=== PATIENT | female | born 1995 | race American Indian/Alaskan Native ===

== ENCOUNTER 2019-04-17 12:57 | Emergency (ER) | payer SELFPAY ==
[2019-04-17] MEDS ORDERED: TYLENOL PO STA (13:10)
[2019-04-17] MEDS ORDERED: NACL 0.9% 500 ML 500 ML IV ONE (13:10)
--- NOTE | 2019-04-17 13:12 | Event Note ---
ED Screening Note Date of service: 04/17/19 Time: 13:11 ED Screening Note: 23 y/o female c/o fever, kidney pain, blurry vision for few days. This initial assessment/diagnostic orders/clinical plan/treatment(s) is/are subject to change based on patients health status, clinical progression and re- assessment by fellow clinical providers in the ED. Further treatment and workup at subsequent clinical providers discretion. Patient/guardian urged not to elope from the ED as their condition may be serious if not clinically assessed and managed. Initial orders include:
[2019-04-17 13:45] LABS: Monocytes % (Auto) 6.6 % (0.0-7.3)
[2019-04-17] MEDS ORDERED: NACL 0.9% 1000 ML IV ONE (13:47)
[2019-04-17 13:48] LABS: INR 1.17 (0.87-1.13)
[2019-04-17] MEDS ORDERED: ZOFRAN IV ONE (13:53)
[2019-04-17] MEDS ORDERED: SUBLIMAZE IV ONE (13:53)
[2019-04-17 13:54] LABS: Alanine Aminotransferase 8 units/L (7-56); Albumin 3.8 g/dL (3.9-5); BUN/Creatinine Ratio 11; Basophils % (Auto) 0.2 % (0.0-1.8); Blood Urea Nitrogen 8 mg/dL (7-17); Hematocrit 34.7 % (30.3-42.9); Hemoglobin 11.2 gm/dl (10.1-14.3); Hemolysis Index 1; Lymphocytes % (Auto) 4.6 % (13.4-35.0); Mean Corpuscular HGB Conc 32 % (30-34); Mean Corpuscular Volume 81 fl (79-97); Platelet Count 259 K/mm3 (140-440); Red Blood Count 4.31 M/mm3 (3.65-5.03); Red Cell Distribution Width 18.8 % (13.2-15.2)
[2019-04-17 13:55] LABS: Monocytes # (Auto) 1.5 K/mm3 (0.0-0.8)
--- NOTE | 2019-04-17 14:02 | Emergency Department Report ---
HPI - General Chief Complaint: Urogenital-Female Time Seen by Provider: 04/17/19 13:47 - HPI HPI: Room 7 The patient is a 23-year-old female presenting with a chief complaint of right flank pain. The patient says she's had sharp pain in her right flank since yesterday. Patient admits to urinary frequency and dysuria at the end of her stream. Patient denies hematuria or vaginal discharge. Patient denies nausea or vomiting. Patient admits to subjective fever and chills. Patient currently gives her pain a score of 10/10 Location: [See above] Duration: [See above] Quality: [See above] Severity: [See above] Modifying factors: [see above] Context: [see above] Mode of transportation: [not driving] ED Past Medical Hx - Past Medical History Previous Medical History?: No - Surgical History Past Surgical History?: No - Family History Family history: no significant - Social History Smoking Status: Never Smoker Substance Use Type: None (denies illicit drug use) - Medications Home Medications: Home Medications Medication Instructions Recorded Confirmed Last Taken Type HYDROcodone/APAP 5-325 [[place] 1 - 2 each PO Q6HR PRN #14 tablet 04/17/19 Unknown Rx 5/325] Ibuprofen [Motrin 800 MG tab] 800 mg PO Q8HR PRN #20 tablet 04/17/19 Unknown Rx levoFLOXacin [Levaquin] 750 mg PO QDAY #10 tablet 04/17/19 Unknown Rx ED Review of Systems ROS: Stated complaint: BACK PAIN/BLURR VISION Other details as noted in HPI Constitutional: chills, fever Eyes: denies: eye pain ENT: denies: throat pain Respiratory: no symptoms reported Cardiovascular: denies: chest pain Endocrine: no symptoms reported Gastrointestinal: denies: abdominal pain, nausea, vomiting Genitourinary: dysuria, frequency. denies: hematuria, discharge Musculoskeletal: back pain Neurological: headache Physical Exam - Physical Exam Vital Signs: Vital Signs 04/17/19 13:08 Temperature 101.6 F H Pulse Rate 125 H Respiratory 18 Rate Blood Pressure 140/86 O2 Sat by Pulse 97 Oximetry Physical Exam: GENERAL: The patient is well-developed well-nourished female lying on stretcher not appearing to be in acute distress. [] HEENT: Normocephalic. Atraumatic. Extraocular motions are intact. Patient has moist mucous membranes. NECK: Supple. No meningitic signs are noted. Trachea midline CHEST/LUNGS: Clear to auscultation. There is no respiratory distress noted. HEART/CARDIOVASCULAR: Regular. There is tachycardia. There is no gallop rub or murmur. ABDOMEN: Abdomen is soft, nontender. Patient has normal bowel sounds. There is no abdominal distention. SKIN: There is no rash. There is no edema. There is no diaphoresis. NEURO: The patient is awake, alert, and oriented. The patient is cooperative. The patient has no focal neurologic deficits. The patient has normal speech MUSCULOSKELETAL: There is right CVA tenderness. There is no evidence of acute injury. ED Course Vital Signs 04/17/19 13:08 Temperature 101.6 F H Pulse Rate 125 H Respiratory 18 Rate Blood Pressure 140/86 O2 Sat by Pulse 97 Oximetry - Reevaluation(s) Reevaluation #1: 04/17/19 17:00 Patient states she feels improved and just wants something to eat. ED Medical Decision Making - Lab Data Result diagrams: 04/17/19 13:12 04/17/19 13:12 Laboratory Tests 04/17/19 04/17/19 04/17/19 13:12 13:12 13:12 WBC 22.1 H RBC 4.31 Hgb 11.2 Hct 34.7 MCV 81 MCH 26 L MCHC 32 RDW 18.8 H Plt Count 259 Lymph % (Auto) 4.6 L [place] % (Auto) 6.6 Eos % (Auto) 0.0 Baso % (Auto) 0.2 Lymph # 1.0 L [place] # 1.5 H Eos # 0.0 Baso # 0.0 Seg Neutrophils % 88.6 H Seg Neutrophils # 19.6 H PT 14.6 INR 1.17 H VBG pH Sodium 133 L Potassium 3.5 L Chloride 99.9 Carbon Dioxide 17 L Anion Gap 20 BUN 8 Creatinine 0.7 Estimated GFR > 60 BUN/Creatinine Ratio 11 Glucose 106 H Lactic Acid Calcium 9.0 Total Bilirubin 0.50 AST 10 ALT 8 Alkaline Phosphatase 58 Total Protein 7.3 Albumin 3.8 L Albumin/Globulin Ratio 1.1 Urine Color Urine Turbidity Urine pH Ur Specific [place] Urine Protein Urine Glucose (UA) Urine Ketones Urine Blood Urine Nitrite Urine Bilirubin Urine Urobilinogen Ur Leukocyte Esterase Urine WBC (Auto) Urine RBC (Auto) U Epithel Cells (Auto) Urine Bacteria (Auto) Urine Mucus Ur Yeast w Hyphae 04/17/19 04/17/19 04/17/19 13:12 13:12 15:37 WBC RBC Hgb Hct MCV MCH MCHC RDW Plt Count Lymph % (Auto) [place] % (Auto) Eos % (Auto) Baso % (Auto) Lymph # [place] # Eos # Baso # Seg Neutrophils % Seg Neutrophils # PT INR VBG pH 7.363 Sodium Potassium Chloride Carbon Dioxide Anion Gap BUN Creatinine Estimated GFR BUN/Creatinine Ratio Glucose Lactic Acid 0.90 1.20 Calcium Total Bilirubin AST ALT Alkaline Phosphatase Total Protein Albumin Albumin/Globulin Ratio Urine Color Urine Turbidity Urine pH Ur Specific [place] Urine Protein Urine Glucose (UA) Urine Ketones Urine Blood Urine Nitrite Urine Bilirubin Urine Urobilinogen Ur Leukocyte Esterase Urine WBC (Auto) Urine RBC (Auto) U Epithel Cells (Auto) Urine Bacteria (Auto) Urine Mucus Ur Yeast w Hyphae 04/17/19 15:43 WBC RBC Hgb Hct MCV MCH MCHC RDW Plt Count Lymph % (Auto) [place] % (Auto) Eos % (Auto) Baso % (Auto) Lymph # [place] # Eos # Baso # Seg Neutrophils % Seg Neutrophils # PT INR VBG pH Sodium Potassium Chloride Carbon Dioxide Anion Gap BUN Creatinine Estimated GFR BUN/Creatinine Ratio Glucose Lactic Acid Calcium Total Bilirubin AST ALT Alkaline Phosphatase Total Protein Albumin Albumin/Globulin Ratio Urine Color Yellow Urine Turbidity Slightly-cloudy Urine pH 6.0 Ur Specific [place] 1.012 Urine Protein 30 mg/dl Urine Glucose (UA) Neg Urine Ketones 80 Urine Blood Sm Urine Nitrite Neg Urine Bilirubin Neg Urine Urobilinogen < 2.0 Ur Leukocyte Esterase Lg Urine WBC (Auto) 64.0 H Urine RBC (Auto) 12.0 U Epithel Cells (Auto) 3.0 Urine Bacteria (Auto) 1+ Urine Mucus Few Ur Yeast w Hyphae Few - Radiology Data Radiology results: report reviewed (chest x-ray), image reviewed (chest x-ray) interpreted by me: Chest x-ray-no focal infiltrates, no pneumothorax [facility] [address] [place] [address] XRay Report Signed Patient: JOANA DIAZ MR#: [id number] : 1995 Acct:[id number] Age/Sex: 23 / F ADM Date: 04/17/19 Loc: ED Attending Dr: Ordering Physician: JANUSZ ELISE Date of Service: 04/17/19 Procedure(s): XR chest 1V ap Accession Number(s): [id number] cc: JANUSZ ELISE Fluoro Time In Minutes: PROCEDURE: XR CHEST 1V AP TECHNIQUE: Chest radiograph single portable AP view. HISTORY: possible Sepsis COMPARISONS: None . FINDINGS: Heart: Magnified due to projection, appears to be normal size.. Mediastinum/Vessels: Normal. Lungs/Pleural space: Clear.. Bony thorax: No acute osseous abnormality. Life support devices: None. IMPRESSION: No acute cardiopulmonary abnormality. This document is electronically signed by Aleksey Vazquez MD., April 17 2019 02:25:06 PM ET Transcribed By: DFN Dictated By: ALEKSEY VAZQUEZ MD Electronically Authenticated By: ALEKSEY VAZQUEZ MD Sig hemant Date/Time: 04/17/19 1427 DD/ 1403 TD/TT: 04/17/19 1403 - Differential Diagnosis pyelonephritis, UTI, sepsis Critical care attestation.: If time is entered above; I have spent that time in minutes in the direct care of this critically ill patient, excluding procedure time. ED Disposition Clinical Impression: Pyelonephritis, Acute right flank pain Disposition: TO HOME OR SELFCARE Is pt being admited?: No Does the pt Need Aspirin: No Condition: Stable Instructions: Acute Pyelonephritis (ED) Additional Instructions: Return to the emergency department immediately should you develop worsening symptoms, fever, inability to tolerate food or liquid or any other concerns. Prescriptions: levoFLOXacin [Levaquin] 750 mg PO QDAY #10 tablet Ibuprofen [Motrin 800 MG tab] 800 mg PO Q8HR PRN #20 tablet PRN Reason: Pain , Severe (7-10) HYDROcodone/APAP 5-325 [[place] 5/325] 1 - 2 each PO Q6HR PRN #14 tablet PRN Reason: Pain Referrals: [facility] [Outside] - 3-5 Days Time of Disposition: 17:01
--- NOTE | 2019-04-17 14:27 | XRay Report ---
PROCEDURE: XR CHEST 1V AP TECHNIQUE: Chest radiograph single portable AP view. HISTORY: possible Sepsis COMPARISONS: None . FINDINGS: Heart: Magnified due to projection, appears to be normal size.. Mediastinum/Vessels: Normal. Lungs/Pleural space: Clear.. Bony thorax: No acute osseous abnormality. Life support devices: None. IMPRESSION: No acute cardiopulmonary abnormality. This document is electronically signed by Aleksey Vazquez MD., April 17 2019 02:25:06 PM ET
[2019-04-17] MEDS ORDERED: LEVAQUIN PO ONE (14:33)
[2019-04-17 16:02] LABS: Bacteria,Urine 1+ /HPF (Negative); Bilirubin,Urine NEG (Negative); Blood,Urine SM (Negative); Color,Urine Yellow (Yellow); Mucus,Urine FEW /HPF; Urobilinogen,Urine < 2.0 mg/dL (<2.0)
[2019-04-17 16:47] VITALS: BP 132/67
== END 2019-04-17 17:34 | disposition home or self-care (01) ==
LOC: ED 12:57
DX: N12 Tubulo-interstitial nephritis, not specified as acute or chronic (principal); Z79.899 Other long term (current) drug therapy
CPT/HCPCS: 36415; 71045; 80053; 81001; 82140; 82805; 85025; 85610; 87040; 87086; 93005; 93010; 96374; 96375; 99284; J2405; J3010; J7030